=== PATIENT | female | born 1965 | race Caucasian/White ===

== ENCOUNTER → 2017-12-27 | Day surgery (SDC) | payer OTHER ==
--- NOTE | 2017-12-28 16:31 | PATH ---
Surgical Pathology Report Patient Name: JENNIFER CIFUENTES [facility]. Rec. #: [id number] /Age/Gender: 1965 (Age: 52) / F Account: [id number] Location: [facility] Taken: 12/27/2017 Received: 12/27/2017 Reported: 12/28/2017 Physicians: Stacy Shah M.D. Specimen(s) Received A: BREAST CORE BIOPSY RIGHT WITH CALCIFICATIONS B: BREAST CORE BIOPSY RIGHT WITHOUT CALCIFICATIONS Clinical History Non-palpable lesion Mammographic findings: Microcalcification, suspicious Final Diagnosis A. BREAST, RIGHT, WITH CALCIFICATIONS, STEREOTACTIC BIOPSY: BENIGN BREAST TISSUE SHOWING FIBROCYSTIC CHANGES INCLUDING CYSTIC APOCRINE METAPLASIA AND COLUMNAR CELL CHANGE WITH ASSOCIATED CALCIFICATIONS. B. BREAST, RIGHT, WITHOUT CALCIFICATIONS, STEREOTACTIC BIOPSY: BENIGN BREAST TISSUE. Electronically Signed Eloisa Mata M.D. Gross Description A. Received in formalin labeled "right breast with calcifications," are five ashley-yellow, cylindrical portions of fibroadipose tissue ranging from 0.3-2.2 cm in length and averaging 0.3 cm in diameter. The specimens are submitted in toto in one cassette. B. Received in formalin labeled "right breast without calcifications," are five ashley-yellow, cylindrical portions of fibroadipose tissue ranging from 0.8-3.0 cm in length and averaging 0.3 cm in diameter. The specimens are submitted in toto in one cassette. Time to formalin fixation: 5 minutes Total formalin fixation time: Approximately 10 hours /12/27/2017
== END | disposition home or self-care (01) ==
LOC: FMAMMOTONE 11:36
PROVIDERS: ATTEND Internal Medicine
PROC: 0HBT3ZX Excision of Right Breast, Percutaneous Approach, Diagnostic (ICD-10-PCS; principal; 2017-12-27)
DX: N60.11 Diffuse cystic mastopathy of right breast (principal); R92.1 Mammographic calcification found on diagnostic imaging of breast; N64.89 Other specified disorders of breast
CPT/HCPCS: 19081; 87899; 88305-TC; A4648

== ENCOUNTER 2019-11-09 10:29 | Emergency (ER) | payer OTHER ==
[2019-11-09 10:38] VITALS: BP 130/46; PULSE 69; TEMP 97.9; BMI 31.8
--- NOTE | 2019-11-09 11:51 | PDOC ---
History of Present Illness - General Chief Complaint: Pain, Acute Stated Complaint: LT KNEE PAIN Time Seen by Provider: 11/09/19 10:49 History Source: Patient Exam Limitations: No Limitations Past History - Travel Traveled outside of the country in the last 30 days: No Close contact w/someone who was outside of country & ill: No - Past Medical History Allergies/Adverse Reactions: Allergies Allergy/AdvReac Type Severity Reaction Status Date / Time No Known Allergies Allergy Verified 11/09/19 10:33 Home Medications: Ambulatory Orders Cholecalciferol (Vitamin D3) [Vitamin D3 -] 1,000 unit PO DAILY 11/09/19 Lisinopril/Hydrochlorothiazide [Lisinopril-Hctz 10-12.5 mg Tab] 1 each PO DAILY 11/09/19 - Psycho Social/Smoking Cessation Hx Smoking History: Never smoked Review of Systems - Review of Systems Able to Perform ROS?: Yes Comments:: 11/09/19 19:42 CONSTITUTIONAL: Absent: fever, chills, diaphoresis, generalized weakness, malaise, loss of appetite HEENT: Absent: rhinorrhea, nasal congestion, throat pain, throat swelling, difficulty swallowing, mouth swelling, ear pain, eye pain, visual Changes MUSCULOSKELETAL: Present: Left knee pain Absent: myalgia, arthralgia, joint swelling SKIN: Absent: rash, itching, pallor NEUROLOGIC: Absent: headache, focal weakness or paresthesias, dizziness, unsteady gait, seizure, mental status changes, bladder or bowel incontinence PSYCHIATRIC: Absent: anxiety, depression, suicidal or homicidal ideation, hallucinations. Is the patient limited Pashto proficient: No *Physical Exam - Vital Signs Last Vital Signs Temp Pulse Resp BP Pulse Ox 97.9 F 69 16 130/46 L 100 11/09/19 10:34 11/09/19 10:34 11/09/19 10:34 11/09/19 10:34 11/09/19 10:34 - Physical Exam 11/09/19 19:43 GENERAL: Well developed, well nourished. Awake and alert. No acute distress. MUSCULOSKELETAL Tenderness to palpation of the superior aspect of the left patella, distal quadriceps tendon. Negative anterior draw, posterior draw, varus and valgus stretching, Trupti's testing of the left knee. Negative David's test of the left hip. Normal range of motion at all joints. No bony deformities or tenderness. No CVA tenderness. EXTREMITIES: No cyanosis. No clubbing. No edema. No calf tenderness. SKIN: Warm and dry. Normal capillary refill. No rashes. No jaundice. NEUROLOGICAL: Alert, awake, appropriate. Cranial nerves 2-12 intact. No deficits to light touch and temperature in face, upper extremities and lower extremities. No motor deficits in the in face, upper extremities and lower extremities. Normoreflexic in the upper and lower extremities. Normal speech. Toes are down- going bilaterally. Gait is normal without ataxia. PSYCHIATRIC: Cooperative. Good eye contact. Appropriate mood and affect. Medical Decision Making - Medical Decision Making 11/09/19 13:51 The patient is a 54-year-old female no past medical history presents to the ER with left knee pain for 1 month. She states she came today because the pain has gotten worse. She states it is worse at night when she is sleeping. She notes that the pain is just above her left knee. She states she saw her primary care doctor for the issue and was prescribed ibuprofen which has not helped. Denies numbness and tingling weakness the affected extremity. A/P: Left knee pain On exam patient tenderness palpation of the distal insertion of the quadriceps tendon. Special testing of the knee is negative. X-rays of the knee and hip showed no abnormalities Possible tendinitis/quadricep muscle strain. We will have patient follow-up with orthopedics given length of symptoms without resolution. Supportive therapy and stretching recommended. Discharge home I discussed the physical exam findings, ancillary test results and final diagnoses with the patient. I answered all of the patient's questions. The patient was satisfied with the care received and felt comfortable with the discharge plan and treatment plan. The Patient agrees to follow up with the primary care physician/specialist within 24-72 hours. Return precautions were given. Discharge - Discharge Information Problems reviewed: Yes Clinical Impression/Diagnosis: Knee pain, left Qualifiers: Chronicity: acute Qualified Code(s): M25.562 - Pain in left knee Condition: Stable Disposition: HOME - Admission No - Follow up/Referral Referrals: Gayle Lucia MD [Primary Care Provider] - Janusz Christianson MD [Staff Physician] - - Patient Discharge Instructions Patient Printed Discharge Instructions: DI for Knee Pain Additional Instructions: You were evaluated for your knee pain today. The x-ray of your hip and knee were normal. You most likely have tendinitis of the quadricep (leg muscle) Please take Motrin 600 mg every 6 hours for pain. Please follow-up with orthopedics this week. A referral has been provided to you. Return to the ER for worsening pain, numbness and tingling down the extremity or if you have any changes in your symptoms. Usted fue evaluado por henson dolor de rodilla abby. La radiografa de henson cadera y rodilla fue normal. Lo ms probable es que tenga tendinitis del cudricep (msculo de la mallory) [place] Motrin 600 mg cada 6 horas para el dolor. Por favor jose eduardo un seguimiento con ortopedia esta semana. Se le moore proporcionado panchito referencia. Regrese a la patience de emergencias para empeorar el dolor, entumecimiento y hormigueo en la extremidad o si tiene algn cambio en mary sntomas. Print Language: OCCITAN - Post Discharge Activity Work/Back to School Note: Back to Work
== END 2019-11-09 12:59 | disposition home or self-care (01) ==
LOC: JERFT 10:29
DX: M25.562 Pain in left knee (principal)
CPT/HCPCS: 73523-TC-FY; 73562-TC-LT-FY; 99281-25

== ENCOUNTER 2020-10-02 09:39 | Emergency (ER) | payer OTHER ==
[2020-10-02 10:10] VITALS: BP 116/75; PULSE 77; TEMP 98; BMI 30.9
[2020-10-02] MEDS ORDERED: KETOROLAC TROMETHAMINE 30 MG/1 ML VIAL IM ONE (10:17)
[2020-10-02] MEDS ORDERED: KETOROLAC TROMETHAMINE 30 MG/1 ML VIAL ONE (10:29)
== END 2020-10-02 12:30 | disposition home or self-care (01) ==
LOC: JER 09:39
PROC: 3E0233Z Introduction of Anti-inflammatory into Muscle, Percutaneous Approach (ICD-10-PCS; principal; 2020-10-02)
DX: M25.571 Pain in right ankle and joints of right foot (principal)
CPT/HCPCS: 73610-TC-RT-FY; 73630-TC-RT-FY; 82962; 99285-25

== ENCOUNTER 2020-12-10 09:15 | Emergency (ER) | payer OTHER ==
[2020-12-10 09:32] VITALS: TEMP 98.1; BMI 35.4
[2020-12-10] MEDS ORDERED: FAMOTIDINE 20 MG/50 ML IVPB 20 MG/50 ML MG IVPB ONE ×2 (11:03→11:27)
[2020-12-10] MEDS ORDERED: SODIUM CHLORIDE 1,000 ML IV STA (11:03)
[2020-12-10 11:59] LABS: EOS % 0.3 % (0-4.5); HEMATOCRIT 39.6 % (32.4-45.2); HEMOGLOBIN 13.4 GM/dL (10.7-15.3); LYMPH % 32.4 % (8-40); MCH 29.5 pg (25.7-33.7); MCHC 33.9 g/dl (32.0-36.0); MEAN CELL VOLUME 87.1 fl (80-96); MEAN PLT VOLUME 9.9 fl (7.5-11.1); MONO % 8.4 % (3.8-10.2); NEUT % 57.9 % (42.8-82.8); PLATELET COUNT 209 K/MM3 (134-434); RBC 4.54 M/mm3 (3.60-5.2); RDW 15.2 % (11.6-15.6); WHITE BLOOD COUNT 5.9 K/mm3 (4.0-10.0)
[2020-12-10 12:13] LABS: CHLORIDE 106 mmol/L (98-107); POTASSIUM 4.2 mmol/L (3.5-5.1); SODIUM 142 mmol/L (136-145)
[2020-12-10 12:16] LABS: ALBUMIN 3.9 g/dl (3.4-5.0); CALCIUM 9.4 mg/dL (8.5-10.1)
[2020-12-10 12:17] LABS: ANION GAP 6 MMOL/L (8-16); BLOOD UREA NITROGEN 16.1 mg/dL (7-18); CO2 29 mmol/L (21-32); GLUCOSE,RANDOM 98 mg/dL (74-106)
[2020-12-10 12:19] LABS: SGPT/ALT 28 U/L (13-61)
[2020-12-10 12:20] LABS: CREATININE 0.7 mg/dL (0.55-1.3); SGOT/AST 20 U/L (15-37)
[2020-12-10 12:21] LABS: BILIRUBIN,TOTAL 0.8 mg/dL (0.2-1); TOT PROT 7.5 g/dl (6.4-8.2)
[2020-12-10 12:22] LABS: ALK PHOS 76 U/L (45-117)
[2020-12-10 12:49] VITALS: BP 107/58; PULSE 72
== END 2020-12-10 13:52 | disposition home or self-care (01) ==
LOC: JER 09:15
PROC: 3E033NZ Introduction of Analgesics, Hypnotics, Sedatives into Peripheral Vein, Percutaneous Approach (ICD-10-PCS; principal; 2020-12-10)
PROC: 3E0337Z Introduction of Electrolytic and Water Balance Substance into Peripheral Vein, Percutaneous Approach (ICD-10-PCS; 2020-12-10)
DX: R07.89 Other chest pain (principal); M94.0 Chondrocostal junction syndrome [Tietze]
CPT/HCPCS: 36415; 71046-TC-FY; 80053; 82550; 82553; 84484; 85025; 93005; 93010; 99285-25

== ENCOUNTER 2021-09-27 08:57 | Emergency (ER) | payer OTHER ==
[2021-09-27] MEDS ORDERED: SODIUM CHLORIDE 1,000 ML IV STA (09:50)
[2021-09-27] MEDS ORDERED: ACETAMINOPHEN 1000 MG/100 ML VIAL IVPB ONE (09:50)
[2021-09-27] MEDS ORDERED: ACETAMINOPHEN INJECTION 100 ML IVPB ONE (10:05)
[2021-09-27 10:40] LABS: HEMATOCRIT 41.2 % (32.4-45.2); HEMOGLOBIN 13.8 GM/dL (10.7-15.3); MCH 29.3 pg (25.7-33.7); MCHC 33.5 g/dl (32.0-36.0); MEAN CELL VOLUME 87.6 fl (80-96); MEAN PLT VOLUME 9.7 fl (7.5-11.1); PLATELET COUNT 201 10^3/uL (134-434); RDW 14.9 % (11.6-15.6); WHITE BLOOD COUNT 7.3 K/mm3 (4.0-10.0)
[2021-09-27 11:01] LABS: CALCIUM 9.3 mg/dL (8.5-10.1)
[2021-09-27 11:02] LABS: ALBUMIN 3.5 g/dl (3.4-5.0); BLOOD UREA NITROGEN 23.8 mg/dL (7-18)
[2021-09-27 11:06] LABS: CREATININE 0.8 mg/dL (0.55-1.3)
[2021-09-27 11:07] LABS: BILIRUBIN,TOTAL 0.3 mg/dL (0.2-1); TOT PROT 7.4 g/dl (6.4-8.2)
[2021-09-27 13:58] LABS: URINE APPEARANCE CLEAR; URINE BILIRUBIN NEGATIVE (NEGATIVE); URINE COLOR YELLOW; URINE GLUCOSE (UA) NEGATIVE (NEGATIVE); URINE KETONE NEGATIVE (NEGATIVE); URINE LEUK ESTERASE NEGATIVE (NEGATIVE); URINE NITRITE NEGATIVE (NEGATIVE); URINE PROTEIN NEGATIVE (NEGATIVE); URINE UROBILINOGEN 0.2 mg/dL (0.2-1.0)
[2021-09-27] MEDS ORDERED: MAG HYDROX/AL HYDROX/SIMETH 30 ML UNIT-DOSE CUP PO ONE (13:59)
[2021-09-27] MEDS ORDERED: MAG HYDROX/AL HYDROX/SIMETH 30 ML UNIT-DOSE CUP ONE (14:04)
[2021-09-27 17:09] VITALS: BP 115/63; PULSE 65; TEMP 97.6
== END 2021-09-27 17:15 | disposition home or self-care (01) ==
LOC: JER 08:57
PROC: 3E033GC Introduction of Other Therapeutic Substance into Peripheral Vein, Percutaneous Approach (ICD-10-PCS; principal; 2021-09-27)
DX: R10.31 Right lower quadrant pain (principal); K76.89 Other specified diseases of liver
CPT/HCPCS: 36415; 74177-TC; 76705-TC; 80053; 81003; 85027; 87077; 87086; 99285-25; J0131; Q9967

== ENCOUNTER 2021-09-28 17:04 | Emergency (ER) | payer OTHER ==
[2021-09-28 17:47] VITALS: BP 117/59; PULSE 71; TEMP 98; BMI 30.1
[2021-09-28] MEDS ORDERED: SODIUM CHLORIDE 0.9% 500 ML INFUS.BAG IV ONE (18:58)
[2021-09-28] MEDS ORDERED: KETOROLAC TROMETHAMINE 30 MG/1 ML VIAL IVPB ONE (18:58)
[2021-09-28] MEDS ORDERED: KETOROLAC TROMETHAMINE 30 MG/1 ML VIAL ONE (19:19)
[2021-09-28 20:29] LABS: BASO % 0.8 % (0-2.0); EOS % 0.6 % (0-4.5); HEMATOCRIT 41.6 % (32.4-45.2); HEMOGLOBIN 13.8 GM/dL (10.7-15.3); LYMPH % 46.8 % (8-40); MCH 29.2 pg (25.7-33.7); MCHC 33.3 g/dl (32.0-36.0); MEAN CELL VOLUME 87.6 fl (80-96); MONO % 7.8 % (3.8-10.2); PLATELET COUNT 203 10^3/uL (134-434); RBC 4.75 M/mm3 (3.60-5.2); RDW 14.6 % (11.6-15.6); WHITE BLOOD COUNT 5.7 K/mm3 (4.0-10.0)
[2021-09-28] MEDS ORDERED: ACETAMINOPHEN 1000 MG/100 ML VIAL IVPB ONE (20:44)
[2021-09-28] MEDS ORDERED: ACETAMINOPHEN INJECTION 100 ML IVPB ONE (20:53)
[2021-09-28 21:00] LABS: BLOOD UREA NITROGEN 19.1 mg/dL (7-18); CALCIUM 9.5 mg/dL (8.5-10.1)
[2021-09-28 21:03] LABS: CREATININE 0.8 mg/dL (0.55-1.3)
[2021-09-28 21:05] LABS: BILIRUBIN,TOTAL 0.7 mg/dL (0.2-1); TOT PROT 8.1 g/dl (6.4-8.2)
[2021-09-28 22:40] LABS: EPI CELLS 27 /uL (0-25.1); HYALINE CASTS 5 /uL (0-3.1); PH,URINE 5.5 (5.0-8.0); URINE APPEARANCE CLEAR; URINE BACTERIA 32 /uL (0-1359); URINE BILIRUBIN NEGATIVE (NEGATIVE); URINE COLOR YELLOW; URINE GLUCOSE (UA) NEGATIVE (NEGATIVE); URINE KETONE NEGATIVE (NEGATIVE); URINE LEUK ESTERASE 2+ (NEGATIVE); URINE NITRITE NEGATIVE (NEGATIVE); URINE PROTEIN NEGATIVE (NEGATIVE); URINE RBC 8 /uL (0-23.9); URINE UROBILINOGEN 0.2 mg/dL (0.2-1.0); URINE WBC 125 /uL (0-25.8)
[2021-09-28] MEDS ORDERED: CEPHALEXIN MONOHYDRATE 500 MG CAPSULE (UD) PO ONE (23:01)
[2021-09-28] MEDS ORDERED: CEPHALEXIN MONOHYDRATE 500 MG CAPSULE (UD) ONE (23:17)
== END 2021-09-28 23:27 | disposition home or self-care (01) ==
LOC: JER 17:04
PROC: 3E0333Z Introduction of Anti-inflammatory into Peripheral Vein, Percutaneous Approach (ICD-10-PCS; principal; 2021-09-28)
PROC: 3E0333Z Introduction of Anti-inflammatory into Peripheral Vein, Percutaneous Approach (ICD-10-PCS; 2021-09-28)
DX: R10.2 Pelvic and perineal pain (principal)
CPT/HCPCS: 36415; 76830-TC; 80053; 81003; 85025; 87086; 99284-25; J0131

== ENCOUNTER 2021-12-17 08:03 | Emergency (ER) | payer OTHER ==
[2021-12-17 08:15] VITALS: BP 114/73; PULSE 73; TEMP 97.6; BMI 30.8
[2021-12-17] MEDS ORDERED: ACETAMINOPHEN INJECTION 100 ML IVPB ONE (08:31)
[2021-12-17] MEDS ORDERED: SODIUM CHLORIDE 1,000 ML IV STA (08:35)
[2021-12-17] MEDS ORDERED: ACETAMINOPHEN 1000 MG/100 ML BAG IVPB ONE (09:01)
[2021-12-17 09:12] LABS: EOS % 0.8 % (0-4.5); HEMATOCRIT 41.7 % (32.4-45.2); HEMOGLOBIN 13.9 GM/dL (10.7-15.3); MCHC 33.4 g/dl (32.0-36.0); MEAN CELL VOLUME 86.8 fl (80-96); MEAN PLT VOLUME 9.7 fl (7.5-11.1); NEUT % 55.2 % (42.8-82.8); PLATELET COUNT 201 10^3/uL (134-434); RDW 15.5 % (11.6-15.6); WHITE BLOOD COUNT 5.5 K/mm3 (4.0-10.0)
[2021-12-17 09:18] LABS: EPI CELLS 8 /uL (0-25.1); HCG,QUALITATIVE URINE Negative; HYALINE CASTS 1 /uL (0-3.1); PH,URINE 5.5 (5.0-8.0); URINE APPEARANCE CLEAR; URINE BACTERIA 39 /uL (0-1359); URINE BILIRUBIN NEGATIVE (NEGATIVE); URINE COLOR YELLOW; URINE GLUCOSE (UA) NEGATIVE (NEGATIVE); URINE KETONE NEGATIVE (NEGATIVE); URINE LEUK ESTERASE 1+ (NEGATIVE); URINE NITRITE NEGATIVE (NEGATIVE); URINE PROTEIN NEGATIVE (NEGATIVE); URINE RBC 8 /uL (0-23.9); URINE UROBILINOGEN 0.2 mg/dL (0.2-1.0); URINE WBC 11 /uL (0-25.8)
[2021-12-17 09:32] LABS: CALCIUM 9.3 mg/dL (8.5-10.1)
[2021-12-17 09:33] LABS: ALBUMIN 3.9 g/dl (3.4-5.0); BLOOD UREA NITROGEN 19.1 mg/dL (7-18)
[2021-12-17 09:35] LABS: CREATININE 0.8 mg/dL (0.55-1.3)
[2021-12-17 09:37] LABS: BILIRUBIN,TOTAL 0.6 mg/dL (0.2-1); TOT PROT 7.8 g/dl (6.4-8.2)
[2021-12-17] MEDS ORDERED: IBUPROFEN 600 MG TABLET (FP) PO ONE ×2 (12:17→12:19)
== END 2021-12-17 14:23 | disposition home or self-care (01) ==
LOC: JER 08:03
PROC: 3E0333Z Introduction of Anti-inflammatory into Peripheral Vein, Percutaneous Approach (ICD-10-PCS; principal; 2021-12-17)
PROC: 3E0337Z Introduction of Electrolytic and Water Balance Substance into Peripheral Vein, Percutaneous Approach (ICD-10-PCS; 2021-12-17)
DX: R10.30 Lower abdominal pain, unspecified (principal); M54.50 Low back pain, unspecified
CPT/HCPCS: 36415; 74177-TC; 76705-TC; 80053; 81003; 83690; 84703; 85025; 87086; 99285-25; Q9967

== ENCOUNTER 2021-12-18 08:44 | Emergency (ER) | payer OTHER ==
[2021-12-18 08:50] VITALS: BP 119/81; PULSE 84; TEMP 97.5; BMI 27.3
[2021-12-18] MEDS ORDERED: LIDOCAINE 5% TOPICAL PATCH TP ONE (09:48)
[2021-12-18] MEDS ORDERED: KETOROLAC TROMETHAMINE 15 MG/ML VIAL IM ONE (09:49)
[2021-12-18] MEDS ORDERED: diazePAM 2 MG TABLET PO ONE (09:49)
[2021-12-18] MEDS ORDERED: diazePAM 2 MG TABLET ONE (09:58)
[2021-12-18] MEDS ORDERED: KETOROLAC TROMETHAMINE 15 MG/ML VIAL ONE (09:59)
[2021-12-18] MEDS ORDERED: LIDOCAINE 5% TOPICAL PATCH ONE (09:59)
[2021-12-18] MEDS ORDERED: LIDOCAINE PATCH REMOVAL MC SCH (22:00)
== END 2021-12-18 11:48 | disposition home or self-care (01) ==
LOC: JER 08:44
PROC: 3E023GC Introduction of Other Therapeutic Substance into Muscle, Percutaneous Approach (ICD-10-PCS; principal; 2021-12-18)
DX: M54.50 Low back pain, unspecified (principal)
CPT/HCPCS: 76856-TC; 96372; 99284-25

== ENCOUNTER 2022-04-12 21:22 | Observation (INO) | payer OTHER ==
[2022-04-12 22:00] VITALS: TEMP 98.2; BMI 30.8
[2022-04-13] MEDS ORDERED: ACETAMINOPHEN 1000 MG/100 ML BAG IVPB ONE (00:52)
[2022-04-13] MEDS ORDERED: ACETAMINOPHEN INJECTION 100 ML IVPB ONE (01:32)
[2022-04-13 02:02] LABS: BASO % 0.9 % (0-2.0); EOS % 1.1 % (0-4.5); HEMATOCRIT 41.6 % (32.4-45.2); HEMOGLOBIN 13.9 GM/dL (10.7-15.3); MCHC 33.3 g/dl (32.0-36.0); MEAN CELL VOLUME 87.1 fl (80-96); MEAN PLT VOLUME 9.9 fl (7.5-11.1); MONO % 7.6 % (3.8-10.2); NEUT % 46.4 % (42.8-82.8); PLATELET COUNT 212 10^3/uL (134-434); RBC 4.78 M/mm3 (3.60-5.2); RDW 15.4 % (11.6-15.6); WHITE BLOOD COUNT 6.6 K/mm3 (4.0-10.0)
[2022-04-13 02:11] LABS: INR 0.92 (0.83-1.09); PROTHROMBIN TIME (PATIENT) 10.6 SEC (9.7-13.0)
[2022-04-13 02:13] LABS: ACTIVATED PTT 32.7 SECONDS (25.2-36.5)
[2022-04-13 02:49] LABS: CALCIUM 9.3 mg/dL (8.5-10.1)
[2022-04-13 02:50] LABS: ALBUMIN 4.1 g/dl (3.4-5.0); BLOOD UREA NITROGEN 30.3 mg/dL (7-18)
[2022-04-13 02:53] LABS: CREATININE 0.8 mg/dL (0.55-1.3)
[2022-04-13 02:54] LABS: TOT PROT 7.7 g/dl (6.4-8.2)
[2022-04-13 02:55] LABS: BILIRUBIN,TOTAL 0.3 mg/dL (0.2-1)
[2022-04-13] MEDS ORDERED: ASPIRIN 81 MG CHEWABLE TABLETS PO ONE (05:36)
[2022-04-13] MEDS ORDERED: ASPIRIN 81 MG CHEWABLE TABLETS ONE (05:45)
[2022-04-13] MEDS ORDERED: SODIUM CHLORIDE 1,000 ML IV SCH ×2 (07:15→09:42)
[2022-04-13] MEDS ORDERED: LIDOCAINE 5% TOPICAL PATCH TP ONE (07:44)
[2022-04-13] MEDS ORDERED: LIDOCAINE 5% TOPICAL PATCH ONE (07:47)
[2022-04-13] MEDS ORDERED: ENOXAPARIN NA (PORCINE) 40 MG/0.4 ML DISP.SYRIN SQ SCH (10:00)
[2022-04-13] MEDS ORDERED: ENOXAPARIN NA (PORCINE) 40 MG/0.4 ML DISP.SYRIN SQ ONE (10:02)
[2022-04-13 11:57] VITALS: BP 127/68; PULSE 69
[2022-04-13] MEDS ORDERED: LIDOCAINE PATCH REMOVAL MC ONE (20:00)
== END 2022-04-13 11:56 | disposition home or self-care (01) ==
LOC: JERFT 21:22 → JERBED 04-13 05:40
PROVIDERS: ADMIT Hospitalist; ATTEND Hospitalist
PROC: 3E033NZ Introduction of Analgesics, Hypnotics, Sedatives into Peripheral Vein, Percutaneous Approach (ICD-10-PCS; principal; 2022-04-13)
PROC: 3E023GC Introduction of Other Therapeutic Substance into Muscle, Percutaneous Approach (ICD-10-PCS; 2022-04-13)
PROC: 3E0337Z Introduction of Electrolytic and Water Balance Substance into Peripheral Vein, Percutaneous Approach (ICD-10-PCS; 2022-04-13)
DX: R51.9 Headache, unspecified (principal); M54.2 Cervicalgia; R07.9 Chest pain, unspecified; E66.8 Other obesity; Z68.30 Body mass index [BMI] 30.0-30.9, adult; M25.512 Pain in left shoulder; M54.9 Dorsalgia, unspecified
CPT/HCPCS: 0241U-QW; 36415; 70450-TC; 70498-TC; 71046-TC-FY; 72125-TC; 80053; 84443; 84484; 85025; 85610; 85730; 86140; 93005; 93010; 96361; 96372; 96374; 99285-25; G0378

== ENCOUNTER 2022-04-27 20:03 | Emergency (ER) | payer OTHER ==
[2022-04-27 20:14] VITALS: BP 113/68; PULSE 73; TEMP 98.2; BMI 29.8
[2022-04-27] MEDS ORDERED: FAMOTIDINE 20 MG/50 ML IVPB 20 MG/50 ML MG IVPB ONE ×2 (22:24→22:36)
[2022-04-27] MEDS ORDERED: LACTATED RINGERS SOLUTION 1,000 ML IV STA (22:24)
[2022-04-27] MEDS ORDERED: ACETAMINOPHEN 1000 MG/100 ML BAG IVPB ONE (22:24)
[2022-04-27] MEDS ORDERED: ONDANSETRON 4 MG/2 ML VIAL IVPUSH ONE (22:25)
[2022-04-27] MEDS ORDERED: MAG HYDROX/AL HYDROX/SIMETH 30 ML UNIT-DOSE CUP PO ONE (22:25)
[2022-04-27] MEDS ORDERED: ONDANSETRON 4 MG/2 ML VIAL ONE (22:35)
[2022-04-27] MEDS ORDERED: ACETAMINOPHEN INJECTION 100 ML IVPB ONE (22:35)
[2022-04-27] MEDS ORDERED: MAG HYDROX/AL HYDROX/SIMETH 30 ML UNIT-DOSE CUP ONE (22:35)
[2022-04-27 23:14] LABS: BASO % 1.5 % (0-2.0); EOS % 0.6 % (0-4.5); HEMATOCRIT 38.9 % (32.4-45.2); MCH 28.8 pg (25.7-33.7); MCHC 33.3 g/dl (32.0-36.0); MEAN CELL VOLUME 86.3 fl (80-96); MEAN PLT VOLUME 9.4 fl (7.5-11.1); MONO % 8.1 % (3.8-10.2); NEUT % 46.8 % (42.8-82.8); PLATELET COUNT 205 10^3/uL (134-434); RBC 4.51 M/mm3 (3.60-5.2); RDW 15.5 % (11.6-15.6); URINE APPEARANCE CLEAR; URINE BILIRUBIN NEGATIVE (NEGATIVE); URINE COLOR YELLOW; URINE GLUCOSE (UA) NEGATIVE (NEGATIVE); URINE KETONE NEGATIVE (NEGATIVE); URINE LEUK ESTERASE NEGATIVE (NEGATIVE); URINE NITRITE NEGATIVE (NEGATIVE); URINE PROTEIN NEGATIVE (NEGATIVE); URINE UROBILINOGEN 0.2 mg/dL (0.2-1.0); WHITE BLOOD COUNT 5.9 K/mm3 (4.0-10.0)
[2022-04-27 23:24] LABS: INR 1.01 (0.83-1.09); PROTHROMBIN TIME (PATIENT) 11.6 SEC (9.7-13.0)
[2022-04-27 23:27] LABS: ACTIVATED PTT 33.6 SECONDS (25.2-36.5)
[2022-04-27 23:55] LABS: MAGNESIUM 2.5 mg/dL (1.8-2.4)
[2022-04-27 23:56] LABS: CALCIUM 9.9 mg/dL (8.5-10.1)
[2022-04-27 23:57] LABS: ALBUMIN 4.1 g/dl (3.4-5.0); BLOOD UREA NITROGEN 21.3 mg/dL (7-18)
[2022-04-27 23:59] LABS: BILIRUBIN,DIRECT 0.1 mg/dL (0.0-0.2)
[2022-04-28 00:01] LABS: TOT PROT 7.8 g/dl (6.4-8.2)
[2022-04-28 00:02] LABS: BILIRUBIN,TOTAL 0.4 mg/dL (0.2-1)
== END 2022-04-28 03:22 | disposition home or self-care (01) ==
LOC: JER 20:03
PROC: 3E033GC Introduction of Other Therapeutic Substance into Peripheral Vein, Percutaneous Approach (ICD-10-PCS; principal; 2022-04-27)
DX: R10.84 Generalized abdominal pain (principal)
CPT/HCPCS: 0241U-QW; 36415; 74177-TC; 80053; 81003; 82248; 83605; 83690; 83735; 84100; 84484; 84703; 85025; 85610; 85730; 86850; 86900; 86901; 87086; 93005; 93010; 99285-25; Q9967

== ENCOUNTER 2022-07-20 09:55 | Emergency (ER) | payer OTHER ==
[2022-07-20 10:19] VITALS: BP 139/60; PULSE 77; RESP 18; TEMP 98.1; BMI 29.8
[2022-07-20] MEDS ORDERED: ACETAMINOPHEN 1000 MG/100 ML BAG IVPB ONE (10:53)
[2022-07-20] MEDS ORDERED: SODIUM CHLORIDE 0.9% 500 ML INFUS.BAG IV ONE (10:53)
[2022-07-20] MEDS ORDERED: ACETAMINOPHEN INJECTION 100 ML IVPB ONE (11:20)
[2022-07-20 12:13] LABS: BASO % 0.5 % (0-2.0); EOS % 0.5 % (0-4.5); HEMATOCRIT 42.5 % (32.4-45.2); HEMOGLOBIN 14.3 GM/dL (10.7-15.3); MCH 29.4 pg (25.7-33.7); MCHC 33.6 g/dl (32.0-36.0); MEAN CELL VOLUME 87.3 fl (80-96); MEAN PLT VOLUME 9.3 fl (7.5-11.1); MONO % 7.2 % (3.8-10.2); NEUT % 57.8 % (42.8-82.8); PLATELET COUNT 195 10^3/uL (134-434); RBC 4.87 M/mm3 (3.60-5.2); RDW 15.5 % (11.6-15.6); WHITE BLOOD COUNT 6.8 K/mm3 (4.0-10.0)
[2022-07-20 12:30] LABS: CALCIUM 9.5 mg/dL (8.5-10.1)
[2022-07-20 12:31] LABS: ALBUMIN 3.7 g/dl (3.4-5.0); BLOOD UREA NITROGEN 23.4 mg/dL (7-18)
[2022-07-20 12:34] LABS: CREATININE 0.7 mg/dL (0.55-1.3)
[2022-07-20 12:35] LABS: BILIRUBIN,TOTAL 0.4 mg/dL (0.2-1); TOT PROT 7.4 g/dl (6.4-8.2)
[2022-07-20 13:10] LABS: URINE APPEARANCE CLEAR; URINE BILIRUBIN NEGATIVE (NEGATIVE); URINE COLOR YELLOW; URINE GLUCOSE (UA) NEGATIVE (NEGATIVE); URINE KETONE NEGATIVE (NEGATIVE); URINE LEUK ESTERASE NEGATIVE (NEGATIVE); URINE NITRITE NEGATIVE (NEGATIVE); URINE PROTEIN NEGATIVE (NEGATIVE); URINE UROBILINOGEN 0.2 mg/dL (0.2-1.0)
[2022-07-20] MEDS ORDERED: KETOROLAC TROMETHAMINE 30 MG/1 ML VIAL IVPB ONE (13:52)
[2022-07-20] MEDS ORDERED: KETOROLAC TROMETHAMINE 30 MG/1 ML VIAL ONE (14:05)
== END 2022-07-20 17:40 | disposition home or self-care (01) ==
LOC: JER 09:55
PROC: 3E033NZ Introduction of Analgesics, Hypnotics, Sedatives into Peripheral Vein, Percutaneous Approach (ICD-10-PCS; principal; 2022-07-20)
PROC: 3E0333Z Introduction of Anti-inflammatory into Peripheral Vein, Percutaneous Approach (ICD-10-PCS; 2022-07-20)
DX: R10.30 Lower abdominal pain, unspecified (principal)
CPT/HCPCS: 36415; 74177-TC; 80053; 81003; 85025; 87086; 93005; 93010; 99285-25; Q9967

== ENCOUNTER 2022-08-18 23:02 | Inpatient (IN) | payer OTHER ==
[2022-08-18] MEDS ORDERED: ACETAMINOPHEN 1000 MG/100 ML BAG IVPB ONE (23:30)
[2022-08-18] MEDS ORDERED: SODIUM CHLORIDE 0.9% 500 ML INFUS.BAG IV ONE (23:34)
[2022-08-18] MEDS ORDERED: SODIUM PHOSPHATE/NA BIPHOS 133 ML ENEMA PR ONE (23:41)
[2022-08-19 00:17] LABS: BASO % 1.1 % (0-2.0); EOS % 0.9 % (0-4.5); HEMATOCRIT 37.4 % (32.4-45.2); HEMOGLOBIN 12.6 GM/dL (10.7-15.3); LYMPH % 39.8 % (8-40); MCH 28.9 pg (25.7-33.7); MCHC 33.6 g/dl (32.0-36.0); MEAN CELL VOLUME 86.2 fl (80-96); MEAN PLT VOLUME 9.3 fl (7.5-11.1); MONO % 8.5 % (3.8-10.2); NEUT % 49.7 % (42.8-82.8); PLATELET COUNT 180 10^3/uL (134-434); RBC 4.34 M/mm3 (3.60-5.2); RDW 15.3 % (11.6-15.6); WHITE BLOOD COUNT 5.8 K/mm3 (4.0-10.0)
[2022-08-19 00:26] LABS: INR 0.97 (0.83-1.09); PROTHROMBIN TIME (PATIENT) 11.2 SEC (9.7-13.0)
[2022-08-19 00:29] LABS: ACTIVATED PTT 32.3 SECONDS (25.2-36.5)
[2022-08-19 00:46] LABS: ALBUMIN 3.5 g/dl (3.4-5.0); BLOOD UREA NITROGEN 22.2 mg/dL (7-18); CALCIUM 9.4 mg/dL (8.5-10.1)
[2022-08-19] MEDS ORDERED: ACETAMINOPHEN INJECTION 100 ML IVPB ONE ×3 (00:46→20:57)
[2022-08-19 00:48] LABS: CREATININE 0.9 mg/dL (0.55-1.3)
[2022-08-19 00:50] LABS: BILIRUBIN,TOTAL 0.3 mg/dL (0.2-1); TOT PROT 6.6 g/dl (6.4-8.2)
[2022-08-19 01:11] LABS: URINE APPEARANCE CLEAR; URINE BILIRUBIN NEGATIVE (NEGATIVE); URINE COLOR YELLOW; URINE GLUCOSE (UA) NEGATIVE (NEGATIVE); URINE KETONE NEGATIVE (NEGATIVE); URINE LEUK ESTERASE NEGATIVE (NEGATIVE); URINE NITRITE NEGATIVE (NEGATIVE); URINE PROTEIN NEGATIVE (NEGATIVE); URINE UROBILINOGEN 0.2 mg/dL (0.2-1.0)
[2022-08-19] MEDS ORDERED: DOCUSATE SODIUM 100 MG CAPSULE (FP) PO ONE ×2 (06:11→06:15)
[2022-08-19] MEDS ORDERED: POLYETHYLENE GLYCOL (HEALTHYLAX) 3350 17 GM PACKET ONE ×2 (06:15→22:38)
[2022-08-19] MEDS ORDERED: POLYETHYLENE GLYCOL (HEALTHYLAX) 3350 17 GM PACKET PO SCH ×2 (06:15→22:00)
[2022-08-19] MEDS ORDERED: PEG 3350/NA SULF BICARB CL/KCL 4000 ML SOLN.RECON PO ONE (06:50)
[2022-08-19] MEDS ORDERED: MAGNESIUM HYDROX 2400MG/30ML ORAL SUSPENSION 30 ML CUP PO ONE (07:46)
[2022-08-19] MEDS ORDERED: MAGNESIUM CITRATE 300 ML BOTTLE PO ONE (07:48)
[2022-08-19] MEDS ORDERED: MAGNESIUM HYDROX 2400MG/30ML ORAL SUSPENSION 30 ML CUP ONE (07:58)
[2022-08-19] MEDS ORDERED: ACETAMINOPHEN 1000 MG/100 ML BAG IVPB ONE (08:09)
[2022-08-19 08:22] VITALS: RESP 18
[2022-08-19] MEDS ORDERED: PANTOPRAZOLE SODIUM 40 MG VIAL ONE (10:44)
[2022-08-19] MEDS: PANTOPRAZOLE SODIUM 40 MG VIAL IVPUSH SCH (10:45)
[2022-08-19] MEDS ORDERED: ACETAMINOPHEN 1000 MG/100 ML BAG IVPB PRN (12:29)
[2022-08-19] MEDS ORDERED: LISINOPRIL 10 MG TABLET PO ONE (12:30)
[2022-08-19] MEDS ORDERED: SIMETHICONE 80 MG TAB.CHEW (FP) PO PRN (12:31)
[2022-08-19] MEDS ORDERED: LISINOPRIL 10 MG TABLET ONE (12:51)
[2022-08-20 01:26] VITALS: BMI 29.7
[2022-08-20] MEDS: METOCLOPRAMIDE HCL 10 MG TABLET (FP) PO SCH ×3 (06:23→16:33)
[2022-08-20] MEDS ORDERED: PATIENT'S OWN MEDICATION (NON-FORMULARY) (Lisinopril/Hydrochlorothiazide [Lisinopril-Hctz PO SCH (10:00)
[2022-08-20] MEDS: ENOXAPARIN NA (PORCINE) 40 MG/0.4 ML DISP.SYRIN SQ SCH (10:14)
[2022-08-20] MEDS: LISINOPRIL 10 MG TABLET PO SCH (10:14)
[2022-08-20] MEDS: HYDROCHLOROTHIAZIDE 12.5 MG CAPSULE (FP) PO SCH (10:14)
[2022-08-20] MEDS: PANTOPRAZOLE SODIUM 40 MG VIAL IVPUSH SCH (10:14)
[2022-08-20] MEDS: POLYETHYLENE GLYCOL (HEALTHYLAX) 3350 17 GM PACKET PO SCH (10:14)
[2022-08-20] MEDS: NAPROXEN 500 MG TABLET PO SCH (21:21)
[2022-08-21] MEDS: METOCLOPRAMIDE HCL 10 MG TABLET (FP) PO SCH ×2 (06:14→11:28)
[2022-08-21] MEDS: LISINOPRIL 10 MG TABLET PO SCH (10:19)
[2022-08-21] MEDS: HYDROCHLOROTHIAZIDE 12.5 MG CAPSULE (FP) PO SCH (10:19)
[2022-08-21] MEDS: PANTOPRAZOLE SODIUM 40 MG VIAL IVPUSH SCH (10:19)
[2022-08-21] MEDS: NAPROXEN 500 MG TABLET PO SCH (10:19)
[2022-08-21] MEDS: POLYETHYLENE GLYCOL (HEALTHYLAX) 3350 17 GM PACKET PO SCH (10:19)
[2022-08-21] MEDS: ENOXAPARIN NA (PORCINE) 40 MG/0.4 ML DISP.SYRIN SQ SCH (10:19)
[2022-08-21 14:06] VITALS: BP 101/53; PULSE 69; TEMP 98.2
== END 2022-08-21 04:00 | disposition home or self-care (01) | DRG 351 ==
LOC: JER 23:02 → JERBED 08-19 07:49 → J6S 08-20 00:31
PROVIDERS: ADMIT Internal Medicine; ATTEND Internal Medicine
DX: M24.551 Contracture, right hip (principal); I10 Essential (primary) hypertension; K59.00 Constipation, unspecified
CPT/HCPCS: 36415; 71046-TC-FY; 73700-TC-RT; 74019-TC-FY; 74177-TC; 76830-TC; 80053; 81003; 85025; 85610; 85730; 87086; 93005; 93010; 97116-GP; 97162-GP; 99285-25; C9803-CS; Q9967; U0003; U0005

== ENCOUNTER 2022-12-10 08:38 | Emergency (ER) | payer OTHER ==
[2022-12-10 08:49] VITALS: BP 121/76; PULSE 74; RESP 18; TEMP 98.4; BMI 29.7
[2022-12-10] MEDS ORDERED: LIDOCAINE 5% TOPICAL PATCH TP ONE (09:33)
[2022-12-10] MEDS ORDERED: CYCLOBENZAPRINE HCL 10 MG TABLET (FP) PO ONE (09:33)
[2022-12-10] MEDS ORDERED: ACETAMINOPHEN 500 MG TABLET (FP) PO ONE (09:33)
[2022-12-10] MEDS ORDERED: KETOROLAC TROMETHAMINE 30 MG/1 ML VIAL IM ONE (09:33)
[2022-12-10] MEDS ORDERED: LIDOCAINE 5% TOPICAL PATCH ONE (09:38)
[2022-12-10] MEDS ORDERED: CYCLOBENZAPRINE HCL 10 MG TABLET (FP) ONE (09:38)
[2022-12-10] MEDS ORDERED: KETOROLAC TROMETHAMINE 30 MG/1 ML VIAL ONE (09:38)
[2022-12-10] MEDS ORDERED: ACETAMINOPHEN 500 MG TABLET (FP) ONE (09:38)
[2022-12-10] MEDS ORDERED: LIDOCAINE PATCH REMOVAL MC SCH (22:00)
== END 2022-12-10 11:11 | disposition home or self-care (01) ==
LOC: JERFT 08:38 → JER 08:38 → JERFT 11:11
PROC: 3E023GC Introduction of Other Therapeutic Substance into Muscle, Percutaneous Approach (ICD-10-PCS; principal; 2022-12-10)
DX: M54.2 Cervicalgia (principal)
CPT/HCPCS: 99284-25

== ENCOUNTER 2022-12-22 23:21 | Emergency (ER) | payer OTHER ==
[2022-12-22 23:23] VITALS: BMI 28.8
[2022-12-23] MEDS ORDERED: SODIUM PHOSPHATE/NA BIPHOS 133 ML ENEMA PR ONE (01:10)
[2022-12-23] MEDS ORDERED: POLYETHYLENE GLYCOL (HEALTHYLAX) 3350 17 GM PACKET PO ONE (01:15)
[2022-12-23] MEDS ORDERED: POLYETHYLENE GLYCOL (HEALTHYLAX) 3350 17 GM PACKET PO SCH (01:15)
[2022-12-23] MEDS ORDERED: POLYETHYLENE GLYCOL (HEALTHYLAX) 3350 17 GM PACKET ONE (02:18)
[2022-12-23 03:12] LABS: BASO % 0.7 % (0-2.0); EOS % 0.5 % (0-4.5); HEMATOCRIT 42.3 % (32.4-45.2); HEMOGLOBIN 13.7 GM/dL (10.7-15.3); LYMPH % 32.7 % (8-40); MCHC 32.4 g/dl (32.0-36.0); MEAN CELL VOLUME 86.4 fl (80-96); MEAN PLT VOLUME 10.1 fl (7.5-11.1); MONO % 6.7 % (3.8-10.2); NEUT % 59.4 % (42.8-82.8); PLATELET COUNT 207 10^3/uL (134-434); RDW 16.8 % (11.6-15.6); URINE APPEARANCE CLEAR; URINE BILIRUBIN NEGATIVE (NEGATIVE); URINE COLOR YELLOW; URINE GLUCOSE (UA) NEGATIVE (NEGATIVE); URINE KETONE NEGATIVE (NEGATIVE); URINE LEUK ESTERASE NEGATIVE (NEGATIVE); URINE NITRITE NEGATIVE (NEGATIVE); URINE PROTEIN NEGATIVE (NEGATIVE); URINE UROBILINOGEN 0.2 mg/dL (0.2-1.0); WHITE BLOOD COUNT 7.2 K/mm3 (4.0-10.0)
[2022-12-23 03:33] LABS: ALBUMIN 4.1 g/dl (3.4-5.0); CALCIUM 9.3 mg/dL (8.5-10.1)
[2022-12-23 03:34] LABS: BLOOD UREA NITROGEN 21.7 mg/dL (7-18)
[2022-12-23 03:36] LABS: CREATININE 0.9 mg/dL (0.55-1.3)
[2022-12-23 03:38] LABS: BILIRUBIN,TOTAL 0.4 mg/dL (0.2-1); TOT PROT 7.9 g/dl (6.4-8.2)
[2022-12-23] MEDS ORDERED: ACETAMINOPHEN 1000 MG/100 ML BAG IVPB ONE (04:00)
[2022-12-23] MEDS ORDERED: ACETAMINOPHEN INJECTION 100 ML IVPB ONE (04:15)
[2022-12-23] MEDS ORDERED: PEG 3350/NA SULF BICARB CL/KCL 4000 ML SOLN.RECON PO ONE (05:44)
[2022-12-23] MEDS ORDERED: KETOROLAC TROMETHAMINE 15 MG/ML VIAL IVPUSH ONE (06:09)
[2022-12-23] MEDS ORDERED: LACTULOSE 20 GM/30 ML UDC (FOR ORAL USE ONLY) PO ONE (06:11)
[2022-12-23] MEDS ORDERED: KETOROLAC TROMETHAMINE 15 MG/ML VIAL ONE (07:08)
[2022-12-23] MEDS ORDERED: LACTULOSE 20 GM/30 ML UDC (FOR ORAL USE ONLY) ONE (07:08)
[2022-12-23 08:53] VITALS: PULSE 74; RESP 16
[2022-12-23 11:20] VITALS: BP 130/72; TEMP 98.3
== END 2022-12-23 11:19 | disposition admitted as inpatient to this hospital (09) ==
LOC: JER 23:21
PROC: 3E033GC Introduction of Other Therapeutic Substance into Peripheral Vein, Percutaneous Approach (ICD-10-PCS; principal; 2022-12-22)
DX: R10.31 Right lower quadrant pain (principal); K59.00 Constipation, unspecified
CPT/HCPCS: 36415; 74018-TC-FY; 74177-TC; 80053; 81003; 85025; 87086; 99285-25; Q9967

== ENCOUNTER 2022-12-24 13:27 | Emergency (ER) | payer OTHER ==
[2022-12-24 13:33] VITALS: BP 134/77; PULSE 85; RESP 18; TEMP 98; BMI 28.8
== END 2022-12-24 14:30 | disposition home or self-care (01) ==
LOC: JERFT 13:27 → JER 13:27 → JERFT 14:30
DX: R21 Rash and other nonspecific skin eruption (principal); T47.2X5A Adverse effect of stimulant laxatives, initial encounter
CPT/HCPCS: 99283-25

== ENCOUNTER 2023-01-14 22:32 | Emergency (ER) | payer OTHER ==
[~2023-01-14 22:32] MED LIST: LIDOCAINE PATCH REMOVAL MC SCH
[2023-01-14 22:38] VITALS: BP 157/78; PULSE 83; RESP 18; TEMP 98.3; BMI 29.2
[2023-01-14] MEDS ORDERED: KETOROLAC TROMETHAMINE 30 MG/1 ML VIAL IM ONE (23:43)
[2023-01-14] MEDS ORDERED: LIDOCAINE 5% TOPICAL PATCH TP ONE (23:43)
[2023-01-14] MEDS ORDERED: LIDOCAINE 5% TOPICAL PATCH ONE (23:45)
[2023-01-14] MEDS ORDERED: KETOROLAC TROMETHAMINE 30 MG/1 ML VIAL ONE (23:45)
== END 2023-01-15 01:33 | disposition home or self-care (01) ==
LOC: JER 22:32
PROC: 3E0233Z Introduction of Anti-inflammatory into Muscle, Percutaneous Approach (ICD-10-PCS; principal; 2023-01-14)
DX: M54.2 Cervicalgia (principal); G89.29 Other chronic pain; M54.6 Pain in thoracic spine; M25.511 Pain in right shoulder
CPT/HCPCS: 99284-25

== ENCOUNTER 2023-02-21 21:12 | Emergency (ER) | payer OTHER ==
[2023-02-21 21:30] VITALS: BP 143/81; PULSE 74; RESP 18; TEMP 98.1; BMI 30.9
[2023-02-21] MEDS ORDERED: KETOROLAC TROMETHAMINE 15 MG/ML VIAL IVPUSH ONE (22:31)
[2023-02-21] MEDS ORDERED: ONDANSETRON 4 MG/2 ML VIAL IVPUSH ONE (22:31)
[2023-02-21] MEDS ORDERED: ONDANSETRON 4 MG/2 ML VIAL ONE (22:34)
[2023-02-21] MEDS ORDERED: KETOROLAC TROMETHAMINE 15 MG/ML VIAL ONE (22:34)
[2023-02-21 22:42] LABS: URINE APPEARANCE CLEAR; URINE BILIRUBIN NEGATIVE (NEGATIVE); URINE COLOR YELLOW; URINE GLUCOSE (UA) NEGATIVE (NEGATIVE); URINE KETONE NEGATIVE (NEGATIVE); URINE LEUK ESTERASE NEGATIVE (NEGATIVE); URINE NITRITE NEGATIVE (NEGATIVE); URINE PROTEIN NEGATIVE (NEGATIVE); URINE UROBILINOGEN 0.2 mg/dL (0.2-1.0)
[2023-02-21 22:56] LABS: BASO % 1.2 % (0-2.0); EOS % 0.8 % (0-4.5); HEMATOCRIT 39.4 % (32.4-45.2); HEMOGLOBIN 13.2 GM/dL (10.7-15.3); LYMPH % 33.2 % (8-40); MCH 28.6 pg (25.7-33.7); MCHC 33.6 g/dl (32.0-36.0); MEAN CELL VOLUME 85.1 fl (80-96); MEAN PLT VOLUME 9.2 fl (7.5-11.1); MONO % 8.8 % (3.8-10.2); PLATELET COUNT 191 10^3/uL (134-434); RBC 4.63 M/mm3 (3.60-5.2); RDW 16.4 % (11.6-15.6); WHITE BLOOD COUNT 7.3 K/mm3 (4.0-10.0)
[2023-02-21 23:06] LABS: INR 0.95 (0.83-1.09)
[2023-02-21 23:09] LABS: ACTIVATED PTT 31.4 SECONDS (25.2-36.5)
[2023-02-21 23:24] LABS: ALBUMIN 3.8 g/dl (3.4-5.0)
[2023-02-21 23:25] LABS: BLOOD UREA NITROGEN 26.9 mg/dL (7-18); CALCIUM 9.1 mg/dL (8.5-10.1)
[2023-02-21 23:26] LABS: CREATININE 0.9 mg/dL (0.55-1.3); TOT PROT 7.1 g/dl (6.4-8.2)
[2023-02-21 23:32] LABS: BILIRUBIN,TOTAL 0.4 mg/dL (0.2-1)
[2023-02-22] MEDS ORDERED: METHOCARBAMOL 500 MG TABLET PO ONE (01:28)
[2023-02-22] MEDS ORDERED: LIDOCAINE 5% TOPICAL PATCH TP ONE (01:28)
[2023-02-22] MEDS ORDERED: ACETAMINOPHEN 325 MG TABLET (FP) PO ONE (01:28)
[2023-02-22] MEDS ORDERED: ACETAMINOPHEN 325 MG TABLET (FP) ONE (01:34)
[2023-02-22] MEDS ORDERED: METHOCARBAMOL 500 MG TABLET ONE (01:34)
[2023-02-22] MEDS ORDERED: LIDOCAINE 5% TOPICAL PATCH ONE (01:34)
[2023-02-22] MEDS ORDERED: LIDOCAINE PATCH REMOVAL MC SCH (22:00)
== END 2023-02-22 02:11 | disposition home or self-care (01) ==
LOC: JER 21:12
PROC: 3E0333Z Introduction of Anti-inflammatory into Peripheral Vein, Percutaneous Approach (ICD-10-PCS; principal; 2023-02-21)
PROC: 3E033GC Introduction of Other Therapeutic Substance into Peripheral Vein, Percutaneous Approach (ICD-10-PCS; 2023-02-21)
DX: M54.50 Low back pain, unspecified (principal); R11.2 Nausea with vomiting, unspecified; R10.31 Right lower quadrant pain
CPT/HCPCS: 36415; 74176-TC; 80053; 81003; 85025; 85610; 85730; 86850; 86900; 86901; 87086; 99284-25

== ENCOUNTER 2023-08-11 13:46 | Emergency (ER) | payer OTHER ==
[2023-08-11 13:57] VITALS: BP 140/61; PULSE 73; RESP 20; TEMP 98.4; BMI 29.8
[2023-08-11] MEDS ORDERED: ACETAMINOPHEN 500 MG TABLET (FP) PO ONE (14:35)
[2023-08-11] MEDS ORDERED: KETOROLAC TROMETHAMINE 30 MG/1 ML VIAL IM ONE (14:35)
[2023-08-11] MEDS ORDERED: ACETAMINOPHEN 500 MG TABLET (FP) ONE (14:57)
[2023-08-11] MEDS ORDERED: KETOROLAC TROMETHAMINE 30 MG/1 ML VIAL ONE (14:57)
== END 2023-08-11 15:44 | disposition home or self-care (01) ==
LOC: JER 13:46
PROC: 3E0233Z Introduction of Anti-inflammatory into Muscle, Percutaneous Approach (ICD-10-PCS; principal; 2023-08-11)
DX: M54.2 Cervicalgia (principal); M25.512 Pain in left shoulder; M25.511 Pain in right shoulder; R51.9 Headache, unspecified; J06.9 Acute upper respiratory infection, unspecified; R05.9 Cough, unspecified; R09.81 Nasal congestion; Z20.822 Contact with and (suspected) exposure to COVID-19
CPT/HCPCS: 0241U-QW; 99284-25

== ENCOUNTER 2024-04-26 05:36 | Emergency (ER) | payer OTHER ==
[2024-04-26 05:46] VITALS: RESP 18; BMI 26.8
[2024-04-26] MEDS: ACETAMINOPHEN 1000 MG/100 ML BAG IVPB ONE (07:01)
[2024-04-26 07:03] LABS: EOS % 0.6 % (0-4.5); HEMATOCRIT 41.8 % (32.4-45.2); MCH 29.5 pg (25.7-33.7); MCHC 33.5 g/dl (32.0-36.0); MEAN CELL VOLUME 88.2 fl (80-96); MONO % 7.8 % (3.8-10.2); NEUT % 61.6 % (42.8-82.8); PLATELET COUNT 175 10^3/uL (134-434); RBC 4.75 M/mm3 (3.60-5.2); RDW 15.5 % (11.6-15.6); WHITE BLOOD COUNT 6.3 K/mm3 (4.0-10.0)
[2024-04-26 07:08] LABS: INR 0.89 (0.83-1.09); PROTHROMBIN TIME (PATIENT) 10.3 SEC (9.7-13.0)
[2024-04-26 07:11] LABS: ACTIVATED PTT 30.5 SECONDS (25.2-36.5)
[2024-04-26 07:23] LABS: POTASSIUM 3.7 mmol/L (3.5-5.1)
[2024-04-26 07:26] LABS: CALCIUM 9.5 mg/dL (8.5-10.1)
[2024-04-26 07:27] LABS: BLOOD UREA NITROGEN 22.8 mg/dL (7-18)
[2024-04-26 07:30] LABS: CREATININE 0.8 mg/dL (0.55-1.3)
[2024-04-26 07:31] LABS: BILIRUBIN,TOTAL 0.5 mg/dL (0.2-1); TOT PROT 7.3 g/dl (6.4-8.2)
[2024-04-26 10:29] VITALS: BP 128/70; PULSE 58; TEMP 98.1
== END 2024-04-26 10:50 | disposition home or self-care (01) ==
LOC: JER 05:36
PROC: 3E033NZ Introduction of Analgesics, Hypnotics, Sedatives into Peripheral Vein, Percutaneous Approach (ICD-10-PCS; principal; 2024-04-26)
DX: U07.1 COVID-19 (principal); R07.89 Other chest pain; R20.0 Anesthesia of skin; R04.0 Epistaxis; R09.81 Nasal congestion; M79.601 Pain in right arm
CPT/HCPCS: 0241U-QW; 36415; 70450-TC; 71045-TC-FY; 80053; 84484; 85025; 85610; 85730; 93005; 93010; 99285-25; J0131

== ENCOUNTER 2024-06-01 16:08 | Emergency (ER) | payer OTHER ==
[2024-06-01 16:26] VITALS: BP 130/76; PULSE 70; RESP 16; TEMP 98.3; BMI 29.7
== END 2024-06-01 17:06 | disposition home or self-care (01) ==
LOC: JERFT 16:08 → JER 16:08 → JERFT 17:06
DX: L03.213 Periorbital cellulitis (principal); H57.12 Ocular pain, left eye
CPT/HCPCS: 99283-25